=== PATIENT | male | born 1975 | race Caucasian/White ===

== ENCOUNTER 2021-12-06 01:38 | Day surgery (SDC) | payer OTHER, SELFPAY ==
[2021-11-29 14:04] VITALS: BMI 32.1
--- NOTE | 2021-12-05 14:42 | PM.HPGS ---
History of Present Illness History of Present Illness Consent: Risks, benefits, and alternatives have been discussed and questions answered. Patient agrees to proceed with procedure. Chief complaint: neoplasm screening Narrative: Aristeo Caldwell is a 46 year old male referred for colon cancer screening Review of Systems Review of Systems: All systems reviewed & are unremarkable except as noted in HPI and below PMFSH Past Medical History Medical History Carpal tunnel syndrome, bilateral Diabetes type 2, controlled Hypertension Family History Family History Mother Diabetes mellitus Hypertension Father Cancer Bone cancer with mets Social History Social History Smoking packs per day: 1 Smoking cigarettes per day: 20.0 Years smoked: 25 Smoking pack-years: 25.00 Smoking status: Former smoker Tobacco type: cigarettes Second hand tobacco smoke exposure: No Smoking end date: 09/11/17 Alcohol intake: current Drinks per week: 3 Substance use: never Substance use type: does not use Living arrangements: with family Gender identity (if verbalized by the patient): Male Sexual Orientation (if Verbalized by the Patient): Straight or Heterosexual Spiritual care concerns: No Agree to blood products: Yes Meds Home Medications and Allergies Home Medications Medication Instructions Recorded Confirmed Type amlodipine 5 mg tablet 5 mg PO DAILY #30 tablet 10/18/21 12/06/21 Rx atorvastatin 10 mg tablet 10 mg PO DAILY #30 tablet 10/18/21 12/06/21 Rx glimepiride 2 mg tablet 2 mg PO QAM #30 tablet 10/18/21 12/06/21 Rx lisinopril 20 mg tablet 20 mg PO DAILY #30 tablet 10/18/21 12/06/21 Rx metformin 500 mg tablet,extended 2,000 mg PO DAILY #120 tablet 10/18/21 12/06/21 Rx release 24 hr Allergies Allergy/AdvReac Type Severity Reaction Status Date / Time No Known Allergies Allergy Verified 12/06/21 06:23 Exam Resp: Auscultation: clear to auscultation bilaterally Cardio: Rate: regular rate Rhythm: regular rhythm GI: GI Palp: Yes Soft to palpation and No Tenderness to palpation present (GI) Assessment and Plan Assessment and plan (1) Colon cancer screening: Code(s): Z12.11 - Encounter for screening for malignant neoplasm of colon Status: Acute Assessment and Plan: Colonoscopy with possible biopsy or polypectomy or cautery or injection of substances.
[2021-12-06 06:15] VITALS: BMI 31.8
[2021-12-06 06:26] VITALS: BP 134/88; PULSE 74; RESP 18; TEMP 36.4; O2SAT 94
[2021-12-06] MEDS: LACTATED RINGERS 1,000 ML 150 ML IV CONT (06:38)
[2021-12-06 06:39] LABS: Glucose Point of Care 325 mg/dl (65-105)
--- NOTE | 2021-12-06 07:09 | SUR.PREOP ---
Notified Dr. Diaz of elevated blood glucose of 325.
--- NOTE | 2021-12-06 07:19 | P.PNAN_ITS ---
Anes - Initial Pre Proc Eval Procedure: Operation Date: 12/06/21 07:30 Proposed Procedures p Screening Colonoscopy - Leoncio Handley MD Date/Time: 12/06/21 07:19 Surgeon: Leoncio Handley MD Pre Op Diagnosis: neoplasm screening Patient Data Age: 46 Gender: M Height: 1.8 m Weight: 103.8 kg Last Vital Signs Temp 97.6 F 12/06/21 06:26 Pulse 74 12/06/21 06:26 Resp 18 12/06/21 06:26 BP 134/88 12/06/21 06:26 Pulse Ox 94 12/06/21 06:26 Allergies Allergy/AdvReac Type Severity Reaction Status Date / Time No Known Allergies Allergy Verified 12/06/21 06:23 Home Medications Medication Instructions Recorded Confirmed Type amlodipine 5 mg tablet 5 mg PO DAILY #30 tablet 10/18/21 12/06/21 Rx atorvastatin 10 mg tablet 10 mg PO DAILY #30 tablet 10/18/21 12/06/21 Rx glimepiride 2 mg tablet 2 mg PO QAM #30 tablet 10/18/21 12/06/21 Rx lisinopril 20 mg tablet 20 mg PO DAILY #30 tablet 10/18/21 12/06/21 Rx metformin 500 mg tablet,extended 2,000 mg PO DAILY #120 tablet 10/18/21 12/06/21 Rx release 24 hr Laboratory Tests 12/06/21 06:31 POC Capillary Glucose 325 mg/dl H mg/dl (65-105) Patient hx anesthesia problems: none Family hx anesthesia problems: none Results Review: All pre-operative results and documents have been reviewed as part of the pre-operative evaluation. [facility] Past Medical History Medical History Carpal tunnel syndrome, bilateral Diabetes type 2, controlled Hypertension Family History Family History Mother Diabetes mellitus Hypertension Father Cancer Bone cancer with mets Social History Social History Smoking packs per day: 1 Smoking cigarettes per day: 20.0 Years smoked: 25 Smoking pack-years: 25.00 Smoking status: Former smoker Tobacco type: cigarettes Second hand tobacco smoke exposure: No Smoking end date: 09/11/17 Alcohol intake: current Drinks per week: 3 Substance use: never Substance use type: does not use Living arrangements: with family Gender identity (if verbalized by the patient): Male Sexual Orientation (if Verbalized by the Patient): Straight or Heterosexual Spiritual care concerns: No Agree to blood products: Yes Anes - Eval Final PreProcedure Day of Procedure 12/06/21 07:19 Patient weight: obese Heart: regular rate and rhythm Lungs: clear to auscultation Airway: Mallampati scale class II Neurological: alert and oriented Last oral intake: >/= 8 hours ASA classification: III Emergent: no Anesthetic plan: proceed Anesthesia type and monitoring: general GIVS and standard monitoring Results Review: All pre-operative results and documents have been reviewed as part of the pre-operative evaluation. Informed Consent: The patient's anesthetic plan and its attendant risks and benefits were discussed with the patient/family/POA. Questions were solicited and answers provided to the satisfaction of the patient/family/POA.
[2021-12-06 07:41] VITALS: BP 106/74; PULSE 65; RESP 23; O2SAT 98
[2021-12-06 07:51] VITALS: BP 115/78; PULSE 61; RESP 19; O2SAT 99
[2021-12-06 08:01] VITALS: BP 129/95; PULSE 64; RESP 14; O2SAT 99
== END 2021-12-06 08:10 | disposition home or self-care (01) ==
PROVIDERS: PCP Family Medicine Adolescent Medicine; Visit Provider Internal Medicine Gastroenterology
PROC: 0DJD8ZZ Inspection of Lower Intestinal Tract, Via Natural or Artificial Opening Endoscopic (ICD-10-PCS; CPT 45378; principal; 2021-12-06 07:30)
DX: Z12.11 Encounter for screening for malignant neoplasm of colon (principal); K64.8 Other hemorrhoids; Z79.84 Long term (current) use of oral hypoglycemic drugs; E11.9 Type 2 diabetes mellitus without complications; I10 Essential (primary) hypertension; G56.03 Carpal tunnel syndrome, bilateral upper limbs; Z87.891 Personal history of nicotine dependence; E66.9 Obesity, unspecified; Z68.31 Body mass index [BMI] 31.0-31.9, adult
CPT/HCPCS: 45378; 82948; J2704; J7120